=== PATIENT | female | born 1990 ===

== ENCOUNTER 2017-03-26 16:09 | Emergency (ER) | payer OTHER ==
[2017-03-26] MEDS ORDERED: Sodium Chloride 0.9% 1,000 ML IV STA (19:33)
[2017-03-26 20:33] LABS: URINE BILIRUBIN NEGATIVE (NEGATIVE); URINE BLOOD NEGATIVE (NEGATIVE); URINE GLUCOSE (UA) NEGATIVE (NEGATIVE); URINE LEUKOCYTE ESTERASE MODERATE Leu/uL (NEGATIVE); URINE NITRATE POSITIVE (NEGATIVE); URINE PROTEIN NEGATIVE mg/dL (<30 mg/dL); URINE UROBILINOGEN 0.2 E.U./dL (<1 E.U./dL)
[2017-03-26 20:37] LABS: BASO # 0.02 K/mm3 (0.0-2.0); BASO % 0.2 % (0.0-3.0); EOS # 0.1 (0.0-0.7); EOS % 0.7 % (1.5-5.0); GRAN # 4.53 (1.4-6.5); GRAN % 56.6 % (50.0-68.0); HEMOGLOBIN 12.4 g/dL (12.0-16.0); LYMPH # 2.8 (1.2-3.4); LYMPH % 35.2 % (22.0-35.0); MEAN CELL VOLUME 93.5 fl (80.0-105.0); MEAN CORPUSCULAR HGB CONC 33.2 g/dl (31.0-37.0); MEAN PLATELET VOLUME 11.3 fl (7.0-11.0); MONO # 0.6 (0.1-0.6); MONO % 7.3 % (1.0-6.0)
[2017-03-26 20:42] LABS: URINE APPEARANCE CLEAR (CLEAR); URINE COLOR YELLOW (YELLOW)
[2017-03-26 20:43] LABS: HCG,QUALITATIVE URINE NEGATIVE (NEGATIVE)
[2017-03-26 20:49] LABS: ALB/GLOB RATIO 1.4 (1.1-1.8); ALBUMIN 4.5 g/dL (3.0-4.8); ALT/SGPT 35 U/L (7-56); AST/SGOT 25 U/L (14-36); BLOOD UREA NITROGEN 8 mg/dL (7-21); CALCIUM 9.6 mg/dL (8.4-10.5); GFR AFRICAN-AMERICAN > 60; GFR NON-AFRICAN AMERICAN > 60
[2017-03-26 21:05] LABS: URINE BACTERIA LARGE (NEG); URINE RBC 0 - 2 /hpf (0-2)
[2017-03-26] MEDS ORDERED: Iohexol 350 MG/100 ML VIAL ONE (22:07)
--- NOTE | 2017-03-26 23:07 | CT ---
EXAM: CT Abdomen and Pelvis With Intravenous Contrast CLINICAL HISTORY: 27 years old, female; Pain; Abdominal pain; Localized; Right lower quadrant (rlq); Additional info: Abd pain TECHNIQUE: Axial computed tomography images of the abdomen and pelvis with intravenous contrast. All CT scans at this facility use one or more dose reduction techniques, viz.: automated exposure control; ma/kV adjustment per patient size (including targeted exams where dose is matched to indication; i.e. head); or iterative reconstruction technique. Coronal and sagittal reformatted images were created and reviewed. CONTRAST: 100 mL of OMNI administered intravenously. COMPARISON: No relevant prior studies available. FINDINGS: Limitations: Motion artifact - mild. Lower thorax: No acute findings. ABDOMEN: Liver: Unremarkable. No mass. Gallbladder and bile ducts: No calcified stones. No ductal dilation. Pancreas: No ductal dilation. No mass. Spleen: No splenomegaly. Adrenals: No mass. Kidneys and ureters: No mass. No hydronephrosis. Stomach and bowel: No definite mural thickening. No obstruction. Appendix: Normal caliber. No definite inflammation. PELVIS: Bladder: Unremarkable. Reproductive: 1.4 x 1.2 x 1.3 cm peripherally enhancing hypodensity with crenulated margins within LEFT ovary. ABDOMEN and PELVIS: Intraperitoneal space: Small free fluid within pelvis. No free air. Bones/joints: No acute fracture. Soft tissues: Unremarkable. Vasculature: Unremarkable. No aneurysm. Lymph nodes: No pathologically enlarged lymph nodes. IMPRESSION: 1. Involuting or ruptured LEFT ovarian follicle/cyst. 2. Incidental/non-acute findings are described above.
--- NOTE | 2017-03-26 23:53 | ED PDOC ---
Arrival/HPI - General Chief Complaint: Abdominal Pain Time Seen by Provider: 03/26/17 19:28 Historian: Patient - History of Present Illness Narrative History of Present Illness (Text): 03/26/17 23:55 27yr old female presents today with 4 day history of abdominal pain. pt c/o nausea. no vomiting. no diarrhea. no cp or sob. denies urinary symptoms. denies vaginal bleeding or discharge. no cp or sob. no medications taken for pain at home. denies . Past Medical History - Provider Review Nursing Documentation Reviewed: Yes - Travel History Have you recently traveled outside [place] w/in the past 3 mons?: No - Infectious Disease Hx of Infectious Diseases: None - Psychiatric Hx Substance Use: No Family/Social History - Physician Review Nursing Documentation Reviewed: Yes Family/Social History: Unknown Family HX Smoking Status: Never Smoked Hx Alcohol Use: No Hx Substance Use: No Allergies/Home Meds Allergies/Adverse Reactions: Allergies No Known Allergies Allergy (Verified 03/26/17 17:11) Review of Systems - Review of Systems Constitutional: absent: Fatigue, Fevers Respiratory: absent: SOB, Cough Cardiovascular: absent: Chest Pain, Palpitations Gastrointestinal: Abdominal Pain. absent: Constipation, Diarrhea, Nausea, Vomiting Genitourinary Female: absent: Dysuria, Frequency, Hematuria, Vaginal Bleeding, Vaginal Discharge Musculoskeletal: absent: Arthralgias, Back Pain, Neck Pain Skin: absent: Rash, Pruritis Neurological: absent: Headache, Dizziness Psychiatric: absent: Anxiety, Depression, Suicidal Ideation Physical Exam Vital Signs Reviewed: Yes Vital Signs Temp Pulse Resp BP Pulse Ox 03/27/17 00:15 98.1 F 86 17 121/67 96 03/27/17 00:04 98.1 F 86 17 121/67 96 03/26/17 23:01 91 H 16 121/72 99 03/26/17 17:09 98.7 F 88 17 107/67 98 Temperature: Afebrile Blood Pressure: Normal Pulse: Regular Respiratory Rate: Normal Appearance: Positive for: Well-Appearing, Non-Toxic, Comfortable Pain Distress: None Mental Status: Positive for: Alert and Oriented X 3 - Systems Exam Head: Present: Atraumatic Mouth: Present: Moist Mucous Membranes Neck: Present: Normal Range of Motion Respiratory/Chest: Present: Clear to Auscultation, Good Air Exchange. No: Respiratory Distress, Accessory Muscle Use Cardiovascular: Present: Regular Rate and Rhythm, Normal S1, S2. No: Murmurs Abdomen: Present: Tenderness (+ rlq tenderness, + suprapubic tenderness), Normal Bowel Sounds. No: Distention, Peritoneal Signs, Rebound, Guarding Back: Present: Normal Inspection. No: CVA Tenderness, Midline Tenderness, Paraspinal Tenderness Upper Extremity: Present: Normal ROM Lower Extremity: Present: Normal ROM Neurological: Present: GCS=15 Skin: Present: Warm, Dry, Normal Color. No: Rashes Psychiatric: Present: Alert, Oriented x 3 Medical Decision Making ED Course and Treatment: 03/27/17 03:44 Patient is nontoxic well appearing with stable vital signs presenting with lower abdominal pain CBC within normal limits CMP within normal limits Beta hCG negative Urinalysis: 5-10 white blood cells and positive leukocytes large bacteria CAT scan: FINDINGS: Limitations: Motion artifact - mild. Lower thorax: No acute findings. ABDOMEN: Liver: Unremarkable. No mass. Gallbladder and bile ducts: No calcified stones. No ductal dilation. Pancreas: No ductal dilation. No mass. Spleen: No splenomegaly. Adrenals: No mass. Kidneys and ureters: No mass. No hydronephrosis. Stomach and bowel: No definite mural thickening. No obstruction. Appendix: Normal caliber. No definite inflammation. PELVIS: Bladder: Unremarkable. Reproductive: 1.4 x 1.2 x 1.3 cm peripherally enhancing hypodensity with crenulated margins within LEFT ovary. ABDOMEN and PELVIS: Intraperitoneal space: Small free fluid within pelvis. No free air. Bones/joints: No acute fracture. Soft tissues: Unremarkable. Vasculature: Unremarkable. No aneurysm. Lymph nodes: No pathologically enlarged lymph nodes. IMPRESSION: 1. Involuting or ruptured LEFT ovarian follicle/cyst. 2. Incidental/non-acute findings are described above. Patient reassessment: pt non toxic well appearing; no distress. vitals stable. Discussed all results with patient in depth macrobid given for UTI. I advised follow-up with primary care physician within the next 2 days. Advised follow-up with her felt hat steamer regarding ovarian cysts. Advised immediately return if symptoms worsen persist or if new concerning symptoms develop. Patient verbalizes understanding of discharge instructions and need for immediate followup. all aspects of this case were discussed the attending of record. Impression: Abdominal pain, Urinary tract infection, ovarian cyst Motrin every 6 hours as needed for pain macrobid; 1 tablet twice daily x 10 days Follow up with primary care physician within the next 2 days Follow up with the CLINICAL EDUCATOR within the next 2 days for ovarian cyst. Return immediately if symptoms worsen persist or if new symptoms develop: High fevers, increasing pain, vomiting, diarrhea or any other concerning symptoms develop - Lab Interpretations Lab Results: 03/26/17 20:15 03/26/17 20:15 Lab Results 03/26/17 20:19: Urine Color Yellow, Urine Appearance Clear, Urine pH 7.0, Ur Specific [place] 1.015, Urine Protein Negative, Urine Glucose (UA) Negative, Urine Ketones Negative, Urine Blood Negative, Urine Nitrate Positive H, Urine Bilirubin Negative, Urine Urobilinogen 0.2, Ur Leukocyte Esterase Moderate H, Urine RBC 0 - 2, Urine WBC 5 - 10, Ur Epithelial Cells 1 - 3, Urine Bacteria Large, Urine HCG, Qual Negative 03/26/17 20:15: WBC 8.0, RBC 4.00, Hgb 12.4, Hct 37.4, MCV 93.5, MCH 31.0, MCHC 33.2, RDW 12.0, Plt Count 212, MPV 11.3 H, Gran % 56.6, Lymph % (Auto) 35.2 H, [place] % (Auto) 7.3 H, Eos % (Auto) 0.7 L, Baso % (Auto) 0.2, Gran # 4.53, Lymph # (Auto) 2.8, [place] # (Auto) 0.6, Eos # (Auto) 0.1, Baso # (Auto) 0.02 03/26/17 20:15: Beta HCG, Quant < 2.39 03/26/17 20:15: Sodium 144, Potassium 4.7, Chloride 106, Carbon Dioxide 26, Anion Gap 17, BUN 8, Creatinine 0.5 L, Est GFR ( Amer) > 60, Est GFR (Non -Af Amer) > 60, Random Glucose 81, Calcium 9.6, Total Bilirubin 0.4, AST 25, ALT 35, Alkaline Phosphatase 58, Total Protein 7.7, Albumin 4.5, Globulin 3.2, Albumin/Globulin Ratio 1.4 - RAD Interpretation Radiology Orders: 03/26/17 21:57 ABD & PELVIS IV CONTRAST ONLY [CT] Stat - Medication Orders Current Medication Orders: Discontinued Medications Acetaminophen (Tylenol 325mg Tab) 975 mg PO STAT STA Stop: 03/26/17 19:34 Last Admin: 03/26/17 20:20 Dose: 975 mg MAR Pain/Vitals Document 03/26/17 20:20 HI (Rec: 03/26/17 20:20 [place] [id number]) Pain Reassessment Is This A Pain ReAssessment? No Re-Assess: MAR Pain/Vitals Document 03/26/17 21:20 HI (Rec: 03/26/17 23:03 [place] [id number]) Pain Reassessment Is This A Pain ReAssessment? Yes Sleep Is patient sleeping during reassessment? Yes Sodium Chloride (Sodium Chloride 0.9%) 1,000 mls @ 999 mls/hr IV .Q1H1M STA Stop: 03/26/17 20:33 Last Admin: 03/26/17 20:19 Dose: 999 mls/hr eMAR Start Stop Document 03/26/17 20:19 HI (Rec: 03/26/17 20:19 [place] [id number]) Intravenous Solution Start Date 03/26/17 Start Time 20:19 Nitrofurantoin Macrocrystals (Macrobid) 100 mg PO STAT STA Stop: 03/26/17 23:43 Last Admin: 03/26/17 23:53 Dose: 100 mg Disposition/Present on Arrival - Present on Arrival Any Indicators Present on Arrival: No History of DVT/PE: No History of Uncontrolled Diabetes: No Urinary Catheter: No History of Decub. Ulcer: No History Surgical Site Infection Following: None - Disposition Have Diagnosis and Disposition been Completed?: Yes Diagnosis: Abdominal pain, Urinary tract infection, Ovarian cyst Disposition: HOME/ ROUTINE Disposition Time: 23:43 Patient Plan: Discharge Condition: GOOD Discharge Instructions (ExitCare): Urinary Tract Infections in Adults, Acute Abdomen (Belly Pain), Adult (DC), Ovarian Cyst (DC) Additional Instructions: Motrin every 6 hours as needed for pain macrobid; 1 tablet twice daily x 10 days Follow up with primary care physician within the next 2 days Follow up with the CLINICAL EDUCATOR within the next 2 days for ovarian cyst. Return immediately if symptoms worsen persist or if new symptoms develop: High fevers, increasing pain, vomiting, diarrhea or any other concerning symptoms develop Prescriptions: Ibuprofen [Motrin] 600 mg PO Q6H PRN #20 tab PRN Reason: pain/fever reduction Nitrofurantoin Macrocrystals [Macrobid] 100 mg PO BID #20 cap Referrals: PCP,NO [Primary Care Provider] - Follow up with primary Vandana Humphreys MD [Staff Provider] - [place] up [place] [facility] [place] - [facility] [[facility]] - Follow up with primary Forms: [employer] (Welsh), WORK NOTE
[2017-03-27 00:04] VITALS: BP 121/67; PULSE 86; RESP 17; TEMP 98.1; O2SAT 96
== END 2017-03-27 00:15 | disposition home or self-care (01) ==
LOC: ED 16:09
DX: N39.0 Urinary tract infection, site not specified (principal); N83.209 Unspecified ovarian cyst, unspecified side; R10.9 Unspecified abdominal pain
CPT/HCPCS: 74177; 80053; 81001; 84702; 84703; 85025; 87086; 99284; J7040; Q9967

== ENCOUNTER 2017-06-10 06:59 | Emergency (ER) | payer OTHER ==
[2017-06-10 07:16] VITALS: RESP 18; TEMP 97.8
--- NOTE | 2017-06-10 07:31 | ED PDOC ---
Arrival/HPI - General Historian: Patient - History of Present Illness Time/Duration: 1-3 hours Symptom Onset: Sudden Symptom Course: Intermittent Quality: Stabbing Activities at Onset: Sleeping <John Scott - Last Filed: 06/10/17 10:34> <SharanVincent L - Last Filed: 06/10/17 18:04> - General Time Seen by Provider: 06/10/17 07:06 - History of Present Illness Narrative History of Present Illness (Text): Patient is a 27 year old female presenting to the emergency room with a complaint abdominal pain. She took a home test in April which was positive. She does not know how she is, date of LMP was 03/30/17. This would make her approximately 10 weeks . She woke up from her sleep this morning in severe lower abdominal pain. The pain is sharp/stabbing in nature located in superpubically. It does not radiate. The pain was severe upon waking and has been intermittent since. It is exacerbated by palpation of the area. She describes the pain as similar to a UTI she had in 03/2017. Upon urinating yesterday, she noticed a small amount of blood on the toilet paper with wiping. There is a yellow vaginal discharge but no pain or itching associated. She has been nauseous since April, but has not vomited. Her first resulted in an emergent at 8 months due to an unknown complication. The baby is currently healthy with no medical problems. Denies fevers, chills, diarrhea, constipation, chest pain, shortness of breath, headaches, vision changes, gross bloody vaginal discharge or edema. (John Scott) Past Medical History - Provider Review Nursing Documentation Reviewed: Yes - Infectious Disease Hx of Infectious Diseases: None - Cardiac Hx Cardiac Disorders: No - Pulmonary Hx Respiratory Disorders: No - Neurological Hx Neurological Disorder: No - HEENT Hx HEENT Disorder: No - Renal Hx Renal Disorder: No - Endocrine/Metabolic Hx Endocrine Disorders: No - Hematological/Oncological Hx Blood Disorders: No - Integumentary Hx Dermatological Disorder: No - Musculoskeletal/Rheumatological Hx Musculoskeletal Disorders: No - Gastrointestinal Hx Gastrointestinal Disorders: No - Genitourinary/Gynecological Hx Genitourinary Disorders: No - Psychiatric Hx Psychophysiologic Disorder: No Hx Substance Use: No <John Scott - Last Filed: 06/10/17 10:34> Family/Social History - Physician Review Nursing Documentation Reviewed: Yes Family/Social History: Unknown Family HX Smoking Status: Never Smoked Hx Alcohol Use: No Hx Substance Use: No <John Scott - Last Filed: 06/10/17 10:34> Allergies/Home Meds <John Scott - Last Filed: 06/10/17 10:34> <Vincent Tsang - Last Filed: 06/10/17 18:04> Allergies/Adverse Reactions: Allergies No Known Allergies Allergy (Verified 03/26/17 17:11) Home Medications: Home Meds Medication Instructions Recorded Confirmed Vit No.126/Iron/Folic 1 tab PO DAILY 06/10/17 06/10/17 [Classic Tablet] Review of Systems - Physician Review All systems were reviewed & negative as marked: Yes - Review of Systems Constitutional: Normal. absent: Fevers Eyes: Normal. absent: Vision Changes ENT: Normal. absent: Rhinorrhea, Sinus Congestion Respiratory: Normal. absent: SOB, Cough Cardiovascular: Normal. absent: Chest Pain, Palpitations, Edema, Calf Pain Gastrointestinal: Abdominal Pain (suprapubic tenderness), Nausea. absent: Constipation, Diarrhea, Vomiting Genitourinary Female: Dysuria, Vaginal Bleeding (spotting on wiping), Vaginal Discharge (yellow discharge). absent: Hematuria Musculoskeletal: Normal. absent: Back Pain, Myalgias Skin: Normal. absent: Rash Neurological: Normal. absent: Headache, Dizziness Endocrine: Normal. absent: Diaphoresis Psychiatric: Normal <John Scott - Last Filed: 06/10/17 10:34> Physical Exam Vital Signs Reviewed: Yes Temperature: Afebrile Blood Pressure: Normal Pulse: Regular Respiratory Rate: Normal Appearance: Positive for: Well-Appearing, Non-Toxic, Comfortable Pain Distress: None Mental Status: Positive for: Alert and Oriented X 3 - Systems Exam Head: Present: Atraumatic, Normocephalic Pupils: Present: PERRL Extroacular Muscles: Present: EOMI Conjunctiva: Present: Normal Mouth: Present: Moist Mucous Membranes Nose (External): Present: Atraumatic Nose (Internal): Present: Normal Inspection, No Active Bleeding, Moist Neck: Present: Normal Range of Motion Respiratory/Chest: Present: Clear to Auscultation, Good Air Exchange. No: Respiratory Distress, Accessory Muscle Use, Wheezes, Rales, Rhonchi Cardiovascular: Present: Regular Rate and Rhythm, Normal S1, S2. No: Murmurs Abdomen: Present: Tenderness (suprapubic TTP), Normal Bowel Sounds, Guarding, Scars (previous c - section). No: Distention, Peritoneal Signs, McBurney's Point Tender, Rovsing's Sign Present Upper Extremity: Present: Normal Inspection, NORMAL PULSES. No: Cyanosis, Edema Lower Extremity: Present: Normal Inspection, NORMAL PULSES. No: Edema, CALF TENDERNESS Neurological: Present: GCS=15, CN II-XII Intact, Speech Normal Skin: Present: Warm, Dry, Normal Color. No: Rashes Lymphatic: No: Cervical Adenopathy Psychiatric: Present: Alert, Oriented x 3, Normal Insight, Normal Concentration <John Scott - Last Filed: 06/10/17 10:34> - Systems Exam Genitourinary/Pelvic Exam: Present: Vaginal Discharge (thick white and yellow discharge), Other (pelvic exam was performed by me with thermodynamics engineer, nurse Elizabeth. Patient was white and yellow thick d/c with no foul odor or cevical motion tenderness.). No: Vaginal Bleeding, Cervical Motion Tendernes, Odor <Vincent Tsang - Last Filed: 06/10/17 18:04> Vital Signs Temp Pulse Resp BP Pulse Ox 06/10/17 10:30 80 18 122/66 97 06/10/17 07:15 97.8 F 97 H 18 106/69 100 Medical Decision Making Re-evaluation Time: 10:02 - Lab Interpretations I have reviewed the lab results: Yes Interpretation: Abnormal lab values (UTI) - RAD Interpretation Route Process Administrator: Radiologist <John Scott - Last Filed: 06/10/17 10:34> - Lab Interpretations I have reviewed the lab results: Yes - RAD Interpretation Route Process Administrator: Radiologist <Vincent Tsang - Last Filed: 06/10/17 18:04> ED Course and Treatment: 06/10/17 07:51 Labs, UA, transvaginal US POC urine preg positive Vaginal exam performed by Dr. Tsang - thick white/yellow discharge, no foul odor, cervical os closed, no gross blood visualized, no cervical motion tenderness, no adnexal tenderness. 06/10/17 10:02 Transvag US - A single viable intrauterine gestation is identified with an average ultrasonic age of 10 weeks 2 days, concordant with LMP derived dates, and cardiac activity of 187 beats per minute. No subchorionic hemorrhage appreciable although a sub cm anterior fundal sub serosal myoma is in question. Remaining myometrium appears unremarkable. UA shows UTI Discussed lab work and US with patient. Patient informed she will be discharged home with Macrobid and Clotrimazole. She was given instructions for prescriptions and told to follow up with her PIPE ORGAN MECHANIC APPRENTICE. Patient was given chance to ask any questions. States she understands and agrees to discharge plan. (Sonia John) 06/10/17 In agreement with resident note, which includes further HPI details. Patient was seen and evaluated with resident, came up with plan and treatment together. (Vincent Tsang) - Lab Interpretations Lab Results: 06/10/17 07:45 06/10/17 07:45 Lab Results 06/10/17 07:45: Beta HCG, Quant 024999.00 H 06/10/17 07:45: Urine Color Yellow, Urine Appearance Sl cloudy, Urine pH 7.0, Ur Specific [place] 1.010, Urine Protein Negative, Urine Glucose (UA) Negative, Urine Ketones Negative, Urine Blood Negative, Urine Nitrate Positive H, Urine Bilirubin Negative, Urine Urobilinogen 0.2, Ur Leukocyte Esterase Moderate H, Urine RBC 0 - 2, Urine WBC 10 - 15, Ur Epithelial Cells 4 - 5, Urine Bacteria Many, Urine Other Uyeast, Urine HCG, Qual Positive 06/10/17 07:45: Sodium 139, Potassium 3.9, Chloride 103, Carbon Dioxide 24, Anion Gap 16, BUN 5 L, Creatinine 0.5 L, Est GFR ( Amer) > 60, Est GFR ( Non-Af Amer) > 60, Random Glucose 79, Calcium 9.1, Magnesium 1.8, Total Bilirubin 0.5, AST 22, ALT 25, Alkaline Phosphatase 44, Total Protein 7.5, Albumin 4.4, Globulin 3.1, Albumin/Globulin Ratio 1.4 06/10/17 07:45: PT 12.1, INR 1.05, APTT 27.1 06/10/17 07:45: WBC 7.6, RBC 3.80, Hgb 12.0, Hct 35.0 L, MCV 92.1, MCH 31.6, MCHC 34.3, RDW 12.1, Plt Count 261, MPV 10.1, Gran % 71.6 H, Lymph % (Auto) 21.6 L, [place] % (Auto) 6.3 H, Eos % (Auto) 0.4 L, Baso % (Auto) 0.1, Gran # 5.47 , Lymph # (Auto) 1.7, [place] # (Auto) 0.5, Eos # (Auto) 0.0, Baso # (Auto) 0.01 - RAD Interpretation Narrative RAD Interpretations (Text): Transvaginal US - A single viable intrauterine gestation is identified with an average ultrasonic age of 10 weeks 2 days, concordant with LMP derived dates, and cardiac activity of 187 beats per minute. No subchorionic hemorrhage appreciable although a sub cm anterior fundal sub serosal myoma is in question. Remaining myometrium appears unremarkable. (John Scott) Radiology Orders: 06/10/17 07:32 OB TRANSVAGINAL [US] Stat - Medication Orders Current Medication Orders: Discontinued Medications Nitrofurantoin Macrocrystals (Macrobid) 100 mg PO Q12 NEREIDA PRN Reason: Protocol Last Admin: 06/10/17 10:18 Dose: 100 mg <John Scott - Last Filed: 06/10/17 10:34> - PA / LENDING ACTIVITIES SUPERVISOR / Resident Statement MD/DO has reviewed & agrees with the documentation as recorded. MD/DO has examined the patient and agrees with the treatment plan. - Scribe Statement The provider has reviewed the documentation as recorded by the Scribe <Vincent Tsang - Last Filed: 06/10/17 18:04> - Scribe Statement Radha Hough Provider Scribe Attestation: All medical record entries made by the Scribe were at my direction and personally dictated by me. I have reviewed the chart and agree that the record accurately reflects my personal performance of the history, physical exam, medical decision making, and the department course for this patient. I have also personally directed, reviewed, and agree with the discharge instructions and disposition. (Vincent Tsang) Disposition/Present on Arrival - Present on Arrival Any Indicators Present on Arrival: No History of DVT/PE: No History of Uncontrolled Diabetes: No Urinary Catheter: No History of Decub. Ulcer: No History Surgical Site Infection Following: None - Disposition Have Diagnosis and Disposition been Completed?: Yes Disposition Time: 10:12 Patient Plan: Discharge <SoniaJohn - Last Filed: 06/10/17 10:34> <SharanVincent L - Last Filed: 06/10/17 18:04> - Disposition Diagnosis: UTI (urinary tract infection) in in first trimester, Yeast infection of the vagina Disposition: HOME/ ROUTINE Condition: GOOD Discharge Instructions (ExitCare): Urinary Tract Infection, Adult (DC), Vaginal Yeast Infection (DC) Additional Instructions: Patient is to be discharged home. She is to continue to taking her vitamins. She is to Macrobid twice a day for 5 days and use Clotrimazole cream every night for 10 nights. Patient needs to follow up with her PIPE ORGAN MECHANIC APPRENTICE, which she states she has her first appointment on June 15. If patient experiences any new or worsening symptoms, please go to the nearest emergency facility. Prescriptions: Clotrimazole 1% Vaginal [Lotrimin 1% Vaginal] 1 appl VG HS #1 tube Nitrofurantoin Macrocrystals [Macrobid] 100 mg PO BID #10 cap Forms: [employer] (Moroccan)
[2017-06-10 07:50] LABS: BASO # 0.01 K/mm3 (0.0-2.0); BASO % 0.1 % (0.0-3.0); EOS % 0.4 % (1.5-5.0); GRAN # 5.47 (1.4-6.5); GRAN % 71.6 % (50.0-68.0); LYMPH # 1.7 (1.2-3.4); LYMPH % 21.6 % (22.0-35.0); MEAN CELL VOLUME 92.1 fl (80.0-105.0); MEAN CORPUSCULAR HEMOGLOBIN 31.6 pg (25.0-35.0); MEAN CORPUSCULAR HGB CONC 34.3 g/dl (31.0-37.0); MEAN PLATELET VOLUME 10.1 fl (7.0-11.0); MONO # 0.5 (0.1-0.6); MONO % 6.3 % (1.0-6.0); RBC 3.8 10^6/uL (3.5-6.1); RED CELL DISTRIBUTION WIDTH 12.1 % (11.5-14.5); WHITE BLOOD COUNT 7.6 10^3/ul (4.5-11.0)
[2017-06-10 07:52] LABS: URINE BILIRUBIN NEGATIVE (NEGATIVE); URINE BLOOD NEGATIVE (NEGATIVE); URINE GLUCOSE (UA) NEGATIVE (NEGATIVE); URINE LEUKOCYTE ESTERASE MODERATE Leu/uL (NEGATIVE); URINE PROTEIN NEGATIVE mg/dL (<30 mg/dL); URINE UROBILINOGEN 0.2 E.U./dL (<1 E.U./dL)
[2017-06-10 07:55] LABS: URINE APPEARANCE SL CLOUDY (CLEAR); URINE COLOR YELLOW (YELLOW)
[2017-06-10 07:59] LABS: URINE RBC 0 - 2 /hpf (0-2)
[2017-06-10 08:00] LABS: INR 1.05 (0.93-1.08); PARTIAL THROMBOPLASTIN TIME 27.1 Seconds (25.1-36.5); PROTHROMBIN TIME 12.1 SECONDS (9.4-12.5); URINE BACTERIA MANY (NEG)
[2017-06-10 08:01] LABS: ALB/GLOB RATIO 1.4 (1.1-1.8); ALBUMIN 4.4 g/dL (3.0-4.8); ALT/SGPT 25 U/L (7-56); AST/SGOT 22 U/L (14-36); BLOOD UREA NITROGEN 5 mg/dL (7-21); CALCIUM 9.1 mg/dL (8.4-10.5); GFR AFRICAN-AMERICAN > 60; GFR NON-AFRICAN AMERICAN > 60
[2017-06-10 08:17] LABS: HCG,QUALITATIVE URINE POSITIVE (NEGATIVE)
--- NOTE | 2017-06-10 09:55 | US ---
PROCEDURE: OB Pelvic Ultrasound HISTORY: abd tenderness ; LMP 03/30/2017 suggests estimated age of 10 weeks 2 days. COMPARISON: Abdomen Pelvis CT with contrast examination 03/26/2017. FINDINGS: UTERUS: A single viable intrauterine gestation is identified within the endometrial cavity is a mean crown-rump length of 3.3 cm and mean sac diameter 4.0 cm. Yolk sac measures 0.4 cm. Cardiac activity is recorded 187 beats per minute with unremarkable decidual reaction identified at this time. Based on mean CRL, average ultrasonic age is 10 weeks 2 days. Uterus measures 12.1 x 5.3 x 7.0 cm. A small sub serosal myoma is not excluded at the high fundus anteriorly toward the right measuring only 9 mm greatest dimension. CERVIX: Long and closed. Cervical length measures 3.3 cm. RIGHT OVARY: Measures 3.0 x 1.6 x 2.5 cm. No mass. Normal flow. LEFT OVARY: Measures 4.8 x 1.5 x 5.3 cm. No mass. Normal flow. FREE FLUID: None. OTHER FINDINGS: None. IMPRESSION: A single viable intrauterine gestation is identified with an average ultrasonic age of 10 weeks 2 days, concordant with LMP derived dates, and cardiac activity of 187 beats per minute. No subchorionic hemorrhage appreciable although a sub cm anterior fundal sub serosal myoma is in question. Remaining myometrium appears unremarkable.
[2017-06-10 10:48] VITALS: BP 122/66; PULSE 80; O2SAT 97
== END 2017-06-10 11:32 | disposition home or self-care (01) ==
LOC: ED 06:59
DX: O98.811 Other maternal infectious and parasitic diseases complicating pregnancy, first trimester (principal); B37.9 Candidiasis, unspecified; Z3A.10 10 weeks gestation of pregnancy

== ENCOUNTER 2017-07-22 08:43 | Emergency (ER) | payer MEDICAID, OTHER ==
[2017-07-22 10:17] VITALS: TEMP 98.4
[2017-07-22 10:19] VITALS: BMI 24.5
[2017-07-22] MEDS ORDERED: Sodium Chloride 0.9% 1,000 ML IV STA (10:24)
--- NOTE | 2017-07-22 10:29 | ED PDOC ---
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 Pt is c/o dyspnea on exertion over the past 3 days. denies cough. pt also with abdominal pain. no fever/chills. no urinary symptoms. no back pain. pt c/o nausea. no vomiting. pt also with headache since yesterday. no other complaints. (Caridad Chowdhury) Past Medical History - Provider Review Nursing Documentation Reviewed: Yes - Travel History Have you recently traveled outside [place] w/in the past 3 mons?: No - Infectious Disease Hx of Infectious Diseases: None - Cardiac Hx Cardiac Disorders: No - Pulmonary Hx Respiratory Disorders: No - Neurological Hx Neurological Disorder: No - HEENT Hx HEENT Disorder: No - Renal Hx Renal Disorder: No - Endocrine/Metabolic Hx Endocrine Disorders: No - Hematological/Oncological Hx Blood Disorders: No - Integumentary Hx Dermatological Disorder: No - Musculoskeletal/Rheumatological Hx Musculoskeletal Disorders: No - Gastrointestinal Hx Gastrointestinal Disorders: No - Genitourinary/Gynecological Hx Genitourinary Disorders: No - Psychiatric Hx Psychophysiologic Disorder: No Hx Substance Use: No <Caridad Chowdhury - Last Filed: 07/22/17 13:23> Family/Social History - Physician Review Nursing Documentation Reviewed: Yes Family/Social History: Unknown Family HX Smoking Status: Never Smoked Hx Alcohol Use: No Hx Substance Use: No <Caridad Chowdhury - Last Filed: 07/22/17 13:23> Allergies/Home Meds <Caridad Chowdhury - Last Filed: 07/22/17 13:23> <Sibma Lerma - Last Filed: 07/22/17 18:36> Allergies/Adverse Reactions: Allergies No Known Allergies Allergy (Verified 03/26/17 17:11) Home Medications: Home Meds Medication Instructions Recorded Confirmed Vit No.126/Iron/Folic 1 tab PO DAILY 06/10/17 07/22/17 [Classic Tablet] Review of Systems - Review of Systems Constitutional: absent: Fatigue, Fevers Respiratory: absent: SOB, Cough Cardiovascular: Chest Pain. absent: Palpitations Gastrointestinal: Abdominal Pain, Nausea. absent: Constipation, Diarrhea, Vomiting Genitourinary Female: absent: Dysuria, Frequency, Hematuria, Vaginal Bleeding, Vaginal Discharge Musculoskeletal: absent: Arthralgias, Back Pain, Neck Pain Skin: absent: Rash, Pruritis Neurological: absent: Headache, Dizziness Psychiatric: absent: Anxiety, Depression, Suicidal Ideation <Caridad Chowdhury - Last Filed: 07/22/17 13:23> Physical Exam Vital Signs Reviewed: Yes Temperature: Afebrile Blood Pressure: Normal Pulse: Tachycardic Respiratory Rate: Normal Appearance: Positive for: Well-Appearing, Non-Toxic, Comfortable Pain Distress: None Mental Status: Positive for: Alert and Oriented X 3 - Systems Exam Head: Present: Atraumatic Mouth: Present: Moist Mucous Membranes Neck: Present: Normal Range of Motion Respiratory/Chest: Present: Clear to Auscultation, Good Air Exchange. No: Respiratory Distress, Accessory Muscle Use, Wheezes, Retracting, Rhonchi, Tachypneic Cardiovascular: Present: Regular Rate and Rhythm Abdomen: Present: Tenderness (minimal suprapubic tenderness). No: Rebound, Guarding Back: Present: Normal Inspection. No: Midline Tenderness, Paraspinal Tenderness Upper Extremity: Present: Normal ROM Lower Extremity: Present: Normal ROM Neurological: Present: GCS=15, Speech Normal Skin: Present: Warm, Dry, Normal Color. No: Rashes Psychiatric: Present: Alert, Oriented x 3 <Caridad Chowdhury - Last Filed: 07/22/17 13:23> Vital Signs Temp Pulse Resp BP Pulse Ox 07/22/17 15:45 107 H 17 109/70 99 07/22/17 12:41 105 H 18 105/65 98 07/22/17 10:05 98.4 F 108 H 17 102/60 99 Medical Decision Making <Caridad Chowdhury - Last Filed: 07/22/17 13:23> <Simba Lerma - Last Filed: 07/22/17 18:36> ED Course and Treatment: 07/22/17 10:30 27yr old female with chest pain and shortness of breath with TERRY x 3 days. pt given tylenol for pain. cbc: wbc; 12.1 cmp: wnl beta hcg; D-dimer: elevated. pt/ptt INR ekg; NSR at 97 b/m with incomplete RBBB, normal axis, normal intervals. ua; + leukocytes, + nitrates uc pending transvaginal US ordered; 07/22/17 12:38 case was discussed with dr. lerma in depth; due to cp and TERRY in initially tachycardic at 110b/m; will need to do CTA to r/o PE. using video forensic accountant; basket operator; Mesha Vogel [id number]; i discussed in depth the risks and benefits of cat scan of the chest with IV contrast to r/o PE. i advised the patient of risk of harm to fetus. I advised my concern for PE based on history and symptoms. pt called her and discussed decision in depth with him. the patient has agreed to CT of chest angiography to r/o PE understanding the possibility of harm. ct chest with angiography to r/o PE; ordered. 07/22/17 13:23 Consent form was signed by patient after additional discussion of risks and benefits of CT angio with chest to rule out PE. telephone english interpeter andrews [phone]. witnessed by ELIZABETH haywood 07/22/17 13:25 Case signed out to dr. Lerma pending US and CT angio. (Caridad Chowdhury) - Lab Interpretations Lab Results: 07/22/17 11:30 07/22/17 11:30 Lab Results 07/22/17 11:30: PT 11.8, INR 1.03, APTT 26.3, D-Dimer, Quantitative 401 H 07/22/17 11:30: WBC 12.1 H D, RBC 3.69, Hgb 11.8 L, Hct 34.4 L, MCV 93.2, MCH 32.0, MCHC 34.3, RDW 12.2, Plt Count 253, MPV 10.2, Gran % 86.3 H, Lymph % (Auto ) 6.9 L, Rains % (Auto) 6.7 H, Eos % (Auto) 0.0 L, Baso % (Auto) 0.1, Gran # 10.42 H, Lymph # (Auto) 0.8 L, Rains # (Auto) 0.8 H, Eos # (Auto) 0.0, Baso # ( Auto) 0.01 07/22/17 11:30: Beta HCG, Quant 35326.00 H 07/22/17 11:30: Sodium 137, Potassium 4.2, Chloride 102, Carbon Dioxide 22, Anion Gap 16, BUN 4 L, Creatinine 0.4 L, Est GFR ( Amer) > 60, Est GFR ( Non-Af Amer) > 60, Random Glucose 76, Calcium 9.0, Total Bilirubin 0.5, AST 24, ALT 30, Alkaline Phosphatase 69, Total Protein 7.6, Albumin 4.3, Globulin 3.3, Albumin/Globulin Ratio 1.3 07/22/17 11:22: Urine Color Yellow, Urine Appearance Clear, Urine pH 6.5, Ur Specific Dutton <= 1.005, Urine Protein Negative, Urine Glucose (UA) Negative, Urine Ketones 15 H, Urine Blood Negative, Urine Nitrate Positive H, Urine Bilirubin Negative, Urine Urobilinogen 0.2, Ur Leukocyte Esterase Small H, Urine RBC 0 - 2, Urine WBC 5 - 10, Ur Epithelial Cells 4 - 5, Urine Bacteria Few - RAD Interpretation Radiology Orders: 07/22/17 10:24 AGE [US] Stat 07/22/17 12:37 ANGIO CHEST PE PROTOCOL [CT] Stat - Medication Orders Current Medication Orders: Ceftriaxone Sodium (Rocephin 2 Gm Ivpb) 2 gm in 100 mls @ 100 mls/hr IVPB STAT STA PRN Reason: Protocol Stop: 07/22/17 19:24 Discontinued Medications Acetaminophen (Tylenol 325mg Tab) 975 mg PO STAT STA Stop: 07/22/17 10:25 Last Admin: 07/22/17 11:21 Dose: 975 mg MAR Pain/Vitals Document 07/22/17 11:21 SF (Rec: 07/22/17 11:21 SF [id number]) Pain Reassessment Is This A Pain ReAssessment? Yes Sleep Is patient sleeping during reassessment? No Presence of Pain Presence of Pain Yes Sodium Chloride (Sodium Chloride 0.9%) 1,000 mls @ 999 mls/hr IV .Q1H1M STA Stop: 07/22/17 11:24 Last Admin: 07/22/17 11:21 Dose: 999 mls/hr eMAR Start Stop Document 07/22/17 11:21 SF (Rec: 07/22/17 11:21 SF [id number]) Intravenous Solution Start Date 07/22/17 Start Time 11:21 End Date 07/22/17 End time 12:22 Total Infusion Time 61 Disposition/Present on Arrival - Present on Arrival Any Indicators Present on Arrival: No History of DVT/PE: No History of Uncontrolled Diabetes: No Urinary Catheter: No History Surgical Site Infection Following: None - Disposition Have Diagnosis and Disposition been Completed?: Yes <Caridad Chowdhury - Last Filed: 07/22/17 13:23> - Present on Arrival Any Indicators Present on Arrival: No History of DVT/PE: No History of Uncontrolled Diabetes: No Urinary Catheter: No History Surgical Site Infection Following: None - Disposition Have Diagnosis and Disposition been Completed?: Yes Disposition Time: 18:34 Patient Plan: Discharge <Simba Lerma - Last Filed: 07/22/17 18:36> - Disposition Diagnosis: Urinary tract infection, Chest pain, atypical, Intrauterine Disposition: HOME/ ROUTINE Patient Problems: Current Active Problems Problem Status Onset Urinary tract infection Acute Condition: GOOD Discharge Instructions (ExitCare): Chest Pain (ED), Avoiding Infections in , Urinary Tract Infection, Adult (DC), - The Fourth Month, - The Fifth Month, - The Third Month Additional Instructions: Follow up with your OB doctor tomorrow (Wednesday). Return to us if problems. Keflex is three times a day for ten days. Referrals: FAMILY PROVIDER,NO [Primary Care Provider] - Follow up with primary Forms: WORK NOTE, SCHOOL NOTE
[2017-07-22 11:48] LABS: BASO # 0.01 K/mm3 (0.0-2.0); BASO % 0.1 % (0.0-3.0); GRAN # 10.42 (1.4-6.5); GRAN % 86.3 % (50.0-68.0); HEMOGLOBIN 11.8 g/dL (12.0-16.0); LYMPH # 0.8 (1.2-3.4); LYMPH % 6.9 % (22.0-35.0); MEAN CELL VOLUME 93.2 fl (80.0-105.0); MEAN CORPUSCULAR HGB CONC 34.3 g/dl (31.0-37.0); MEAN PLATELET VOLUME 10.2 fl (7.0-11.0); MONO # 0.8 (0.1-0.6); MONO % 6.7 % (1.0-6.0); RBC 3.69 10^6/uL (3.5-6.1); RED CELL DISTRIBUTION WIDTH 12.2 % (11.5-14.5); WHITE BLOOD COUNT 12.1 10^3/ul (4.5-11.0)
[2017-07-22 12:01] LABS: ALB/GLOB RATIO 1.3 (1.1-1.8); ALBUMIN 4.3 g/dL (3.0-4.8); ALT/SGPT 30 U/L (7-56); AST/SGOT 24 U/L (14-36); BLOOD UREA NITROGEN 4 mg/dL (7-21); GFR AFRICAN-AMERICAN > 60; GFR NON-AFRICAN AMERICAN > 60
[2017-07-22 12:09] LABS: PH,URINE 6.5 (4.7-8.0); URINE BILIRUBIN NEGATIVE (NEGATIVE); URINE BLOOD NEGATIVE (NEGATIVE); URINE GLUCOSE (UA) NEGATIVE (NEGATIVE); URINE LEUKOCYTE ESTERASE SMALL Leu/uL (NEGATIVE); URINE PROTEIN NEGATIVE mg/dL (<30 mg/dL); URINE UROBILINOGEN 0.2 E.U./dL (<1 E.U./dL)
[2017-07-22 12:10] LABS: URINE COLOR YELLOW (YELLOW)
[2017-07-22 12:11] LABS: URINE APPEARANCE CLEAR (CLEAR)
[2017-07-22 12:15] LABS: INR 1.03 (0.93-1.08); PROTHROMBIN TIME 11.8 SECONDS (9.4-12.5)
[2017-07-22 12:16] LABS: PARTIAL THROMBOPLASTIN TIME 26.3 Seconds (25.1-36.5)
[2017-07-22 12:36] LABS: URINE BACTERIA FEW (NEG); URINE RBC 0 - 2 /hpf (0-2)
--- NOTE | 2017-07-22 14:09 | US ---
PROCEDURE: Obstetrical ultrasound examination HISTORY: pain COMPARISON: Not available TECHNIQUE: Transabdominal FINDINGS: There is a single live intrauterine gestation in cephalic presentation. The heart rate is 158 beats per minute. A normal anterior placenta is identified. A grossly normal quantity of amniotic fluid is visualized The cervix is closed and measures 5.4 cm in length. biometry yields a gestational age of 16 weeks 5 days. The REBECCA by ultrasound is 01/01/2018 Limited review of anatomy demonstrates a 4 chamber heart. There is fluid distending the stomach and urinary bladder. The kidneys are not demonstrated. A three-vessel umbilical cord is demonstrated. The anterior abdominal wall is intact. There is no abnormality of the spine demonstrated. The right ovary measures 3.0 x 3.8 x 3.8 cm. The left ovary measures 1.9 x 3.1 x 3.4 cm. Normal blood flow is demonstrated within both ovaries. There are no ovarian masses. IMPRESSION: Single live intrauterine gestation of approximately 16 weeks 5 days without gross anatomic abnormality. heart rate 158 beats per minute. Normal anterior placenta. No previa. Cervix long and closed. Normal ovaries.
[2017-07-22] MEDS ORDERED: Iodixanol 320 MG/ML 100 ML BOTTLE IV ONE (16:55)
--- NOTE | 2017-07-22 18:24 | CT ---
PROCEDURE: CT Chest with contrast (Pulmonary Angiogram) HISTORY: chest pain TERRY, R/o PE COMPARISON: None available. TECHNIQUE: Axial computed tomography images were obtained of the chest in the pulmonary arterial phase of enhancement. Coronal and sagittal reformatted images were created and reviewed. Informed consent obtained prior to this study. Radiation safety precautions per institutional protocol or also instituted. Intravenous contrast dose: 85 cc Visipaque 320 Mean Hounsfield unit values in the main pulmonary artery: 271.78 Radiation dose: Total exam DLP = 228.16 mGy-cm. This CT exam was performed using one or more of the following dose reduction techniques: Automated exposure control, adjustment of the mA and/or kV according to patient size, and/or use of iterative reconstruction technique. FINDINGS: PULMONARY ARTERIES: Unremarkable. No pulmonary embolism. AORTA: No acute findings. No thoracic aortic aneurysm. LUNGS: Unremarkable. No nodule, mass or pulmonary consolidation. PLEURAL SPACES: Unremarkable. No effusion or pneuomothorax. HEART: Unremarkable. No cardiomegaly. No significant pericardial effusion. LYMPH NODES: No lymphadenopathy. BONES, CHEST WALL: Unremarkable. No fracture or destructive lesion OTHER FINDINGS: Unremarkable. IMPRESSION: Unremarkable CT pulmonary angiogram. No pulmonary embolus.
[2017-07-22] MEDS ORDERED: cefTRIAXone 2 GM IN NS 2 GM/100 ML BAG IVPB STA (18:25)
[2017-07-22 19:29] VITALS: BP 108/82; PULSE 98; RESP 18; O2SAT 100
--- NOTE | 2017-07-22 23:38 | CARD ---
APPROVED REPORT EKG Measurement Heart [id number] <Conclusion> Normal sinus rhythm Incomplete right bundle branch block Borderline ECG
== END 2017-07-22 19:28 | disposition home or self-care (01) ==
LOC: ED 08:43
DX: O23.42 Unspecified infection of urinary tract in pregnancy, second trimester (principal); R07.89 Other chest pain; Z3A.16 16 weeks gestation of pregnancy
CPT/HCPCS: 71275; 76815; 80053; 81001; 84702; 85025; 85378; 85610; 85730; 87086; 87181; 93005; 96361; 96365; 99285; J0696; J7030; Q9967

== ENCOUNTER 2018-01-03 11:08 | Emergency (ER) | payer OTHER ==
[2018-01-03 11:28] VITALS: BMI 23.8
[2018-01-03 11:31] VITALS: BP 118/79; PULSE 112; RESP 20; TEMP 98.1; O2SAT 99
--- NOTE | 2018-01-03 11:57 | ED PDOC ---
Arrival/HPI - General Chief Complaint: Abdominal Pain Historian: Patient - History of Present Illness Narrative History of Present Illness (Text): 01/03/18 11:56 27 y/o female, s/p 5 days ago at [facility], here for wound check due to the incision site. Pt. stated that she had incision for about 5 days ago, sterile strips and noted to have blisters on the each end, no fever or chills, no nausea or vomiting, no headache or night sweat. Past Medical History - Infectious Disease Hx of Infectious Diseases: None - Cardiac Hx Cardiac Disorders: No - Pulmonary Hx Respiratory Disorders: No - Neurological Hx Neurological Disorder: No - HEENT Hx HEENT Disorder: No - Renal Hx Renal Disorder: No - Endocrine/Metabolic Hx Endocrine Disorders: No - Hematological/Oncological Hx Blood Disorders: No - Integumentary Hx Dermatological Disorder: No - Musculoskeletal/Rheumatological Hx Musculoskeletal Disorders: No - Gastrointestinal Hx Gastrointestinal Disorders: No - Genitourinary/Gynecological Hx Genitourinary Disorders: No - Psychiatric Hx Psychophysiologic Disorder: No Hx Substance Use: No Family/Social History - Physician Review Nursing Documentation Reviewed: Yes Family/Social History: Unknown Family HX Smoking Status: Never Smoked Hx Alcohol Use: No Hx Substance Use: No Allergies/Home Meds Allergies/Adverse Reactions: Allergies No Known Allergies Allergy (Verified 03/26/17 17:11) Home Medications: Home Meds Medication Instructions Recorded Confirmed Vit No.126/Iron/Folic 1 tab PO DAILY 06/10/17 07/22/17 [Classic Tablet] Physical Exam Vital Signs Temp Pulse Resp BP Pulse Ox 01/03/18 11:28 98.1 F 112 H 20 118/79 99 Medical Decision Making ED Course and Treatment: 01/03/18 12:22 -I went back to the room to perform ROS and Physical exam, she left the room and left the ER, didn't stay for against medical advice, would placed her as left without being seen. - PA / LEARNING AND DEVELOPMENT ANALYST / Resident Statement / has reviewed & agrees with the documentation as recorded. Disposition/Present on Arrival - Present on Arrival Any Indicators Present on Arrival: No History of DVT/PE: No History of Uncontrolled Diabetes: No Urinary Catheter: No History of Decub. Ulcer: No History Surgical Site Infection Following: None - Disposition Have Diagnosis and Disposition been Completed?: Yes Diagnosis: Visit for wound check Disposition Time: 12:23 Condition: STABLE Forms: [employer] (Slovenian)
== END 2018-01-03 12:15 | disposition left against medical advice (07) ==
LOC: ED 11:08
DX: Z48.89 Encounter for other specified surgical aftercare (principal)